=== PATIENT | male | born 1980 | race Caucasian/White ===

== ENCOUNTER 2018-05-19 09:05 | Emergency (ER) | payer SELFPAY ==
[~2018-05-19] VITALS: Ht 170.2 cm; Wt 82.7 kg
[2018-05-19 09:06] VITALS: BP 129/79; PULSE 64; RESP 18; Ht 170.2 cm; Wt 82.7 kg
== END 2018-05-19 09:22 | disposition left against medical advice (07) ==
LOC: FTE 09:05
DX: Z53.21 Procedure and treatment not carried out due to patient leaving prior to being seen by health care provider (principal)